=== PATIENT | female | born 1990 | race American Indian/Alaskan Native ===

== ENCOUNTER 2019-02-19 21:05 | Outpatient (CLI) | payer MEDICAID ==
[2019-02-19] MEDS ORDERED: LACTATED RINGERS 1,000 ML IV ONE (22:12)
[2019-02-19 23:55] VITALS: BP 89/53
[2019-02-20 00:07] LABS: Color,Urine Straw (Yellow)
[2019-02-20 00:08] LABS: Bilirubin,Urine Negative (Negative)
[2019-02-20 00:09] LABS: Blood,Urine Small (Negative); Protein,Urine <15 mg/dL mg/dL (Negative)
[2019-02-20 00:10] LABS: Mucus,Urine Few /HPF
[2019-02-20 01:17] LABS: Bacteria,Urine 1+ /HPF (Negative)
== END 2019-02-20 00:35 | disposition home or self-care (01) ==
LOC: TRG 21:05
PROVIDERS: ATTEND Obstetrics & Gynecology
DX: O26.893 Other specified pregnancy related conditions, third trimester (principal); M54.5 Low back pain; R10.2 Pelvic and perineal pain; O99.333 Smoking (tobacco) complicating pregnancy, third trimester; F17.200 Nicotine dependence, unspecified, uncomplicated; Z3A.35 35 weeks gestation of pregnancy
CPT/HCPCS: 59025; 81001; 87086; 96360; J7120